=== PATIENT | male | born 1970 | race Caucasian/White ===

== ENCOUNTER 2021-10-16 18:29 | Observation (INO) ==
[2021-10-16] MEDS ORDERED: ONDANSETRON INJ 2 MG/ML 2 ML VIAL IV STA ×2 (18:37→21:23)
[2021-10-16 20:03] LABS: Hemoglobin 15.7 g/dl (14.0-18.0); Mean Corpuscular Hemoglobin 31.8 pg (25.0-34.0); Mean Corpuscular Hgb Conc 34.9 g/dL (32.0-36.0); Mean Corpuscular Volume 91.1 fL (80.0-100.0); Mean Platelet Volume 10.8 fL (9.4-12.4); Platelet Count 239 K/uL (130-400); RDW Coefficient of Variation 14.6 % (11.5-14.5); RDW Standard Deviation 48.3 fL (36.4-46.3); Red Blood Count 4.94 M/uL (4.63-6.08); White Blood Count 20.79 K/ul (4.8-10.8)
[2021-10-16 20:18] LABS: Basophils # (auto) 0.07 K/uL (0-0.2); Basophils % (auto) 0.3 %; Immature Granulocytes # (auto) 0.09 K/uL (0.00-0.02); Immature Granulocytes % (auto) 0.4 %; Lymphocytes # (auto) 1.33 K/uL (1.2-3.4); Lymphocytes % (auto) 6.4 %; Monocytes # (auto) 0.65 K/uL (0.24-0.82); Monocytes % (auto) 3.1 %; Neutrophils # (auto) 18.65 K/uL (1.4-6.5); Neutrophils % (auto) 89.8 %; Target Cells 1+
[2021-10-16 20:28] LABS: Albumin Globulin Ratio 1.6 (0.9-2); Albumin Level 4.9 gm/dl (3.4-5.0); BUN Creatinine Ratio 15.7 (10-20); Bilirubin,Total 0.7 mg/dl (0.2-1.0); Calcium 10.1 mg/dl (8.5-10.1); Creatinine Clr Calc Pharmacy 66.7 ml/min; Est GFR (African American) 98.2 ml/min; Est GFR (Non-African American) 84.7 ml/min; Globulin 3.1 gm/dl (2.5-4.0); Potassium 4.5 mmol/L (3.5-5.1)
[2021-10-16] MEDS ORDERED: ACETAMINOPHEN 1,000 MG/100 ML VIAL IV STA (21:23)
[2021-10-16] MEDS ORDERED: PANTOprazole 40 MG in SYRINGE 0 ML IV ONE (21:23)
[2021-10-16] MEDS ORDERED: SODIUM CHLORIDE 0.9% 1000ML 1,000 ML IV ONE (21:25)
--- NOTE | 2021-10-16 21:52 | Emergency Department Note ---
History of Present Illness General Chief complaint: Vomiting Stated complaint: VOMITING, NAUSEA, WEAKNESS Time Seen by Provider: 10/16/21 21:19 Source: patient and family Mode of arrival: ambulatory Limitations: no limitations History of Present Illness Provider complaint: Nausea, vomiting, abdominal pain Maximum Pain Intensity: 9 This is a 51-year-old male presents emergency department complaining of nausea, vomiting, abdominal pain. Patient states symptoms began this morning. He stat es he has had similar episodes previously approximately 5 to 6 years ago. Family at bedside states they are concerned he may have a developing stomach ulcer but he has previously refused any evaluation. He states he has never had an EGD and doesn't take stomach medication. Patient states he vomited numerous times, states it looks brown and he thought at one time he saw blood. Patient states he did have a looser stool today that appeared dark, no obvious blood, states it was not black. Patient denies any change in medications. Does admit to frequent use of NSAIDs, no use of aspirin or anticoagulation. Patient states he has accompanying upper abdominal pain that began after his nausea and vomiting. Patient denies fevers or chills. Patient states he does feel slightly weak and dizzy. No hx of IBS/IBD. Pt seen during a time of high acuity and national emergency pandemic while wea ring PPE. Home Medications Medication Instructions Recorded Confirmed Type No Known Home Medications 10/16/21 10/16/21 History Allergies Allergy/AdvReac Type Severity Reaction Status Date / Time No Known Allergies Allergy Unverified 10/16/21 20:38 Past Med/Surg History Medical History GERD (gastroesophageal reflux disease) Surgical History No significant past surgical history Social History Smoking Status: Former smoker Hx Alcohol Use: Yes Hx Substance Use: No marital status: Current Living Situation: Spouse Feels Safe at Home: Yes Review of Systems A total of 10 systems reviewed and were otherwise negative All systems reviewed & are unremarkable except as noted in HPI & below Physical Exam Vital Signs Vital Signs - 24 hr 10/16/21 18:35 10/16/21 20:29 10/16/21 22:00 Temperature 36.5 C Temperature Source Oral Pulse Rate 62 Pulse Rate [Apical] 52 L Respiratory Rate 20 13 Respiratory Effort / Characteristics Non-Labored Non-Labored Non-Labored Respiratory Depth Normal Normal Normal Respiratory Pattern Regular Blood Pressure 147/116 H Blood Pressure Mean 126 Blood Pressure Position Sitting Pulse Oximetry 100 99 Oxygen Delivery Method Room Air Room Air Sepsis Recent Fever Within 48 Hours No Sepsis New/Unexplained Change in Mental Status No Sepsis Action Taken by Nursing No Action Required 10/17/21 00:00 Temperature Temperature Source Pulse Rate Pulse Rate [Apical] 88 Respiratory Rate 18 Respiratory Effort / Characteristics Non-Labored Respiratory Depth Normal Respiratory Pattern Blood Pressure Blood Pressure Mean Blood Pressure Position Pulse Oximetry 99 Oxygen Delivery Method Sepsis Recent Fever Within 48 Hours Sepsis New/Unexplained Change in Mental Status Sepsis Action Taken by Nursing GENERAL: alert, unwell appearing, well nourished, moderate distress, non-toxic EYE EXAM: normal conjunctiva, PERRL and EOM's grossly intact OROPHARYNX: no exudate, no erythema, lips, buccal mucosa, and tongue normal and mucous membranes are moist, edentulous NECK: supple, no nuchal rigidity, no adenopathy, non-tender LUNGS: Clear to auscultation. Normal chest wall mechanics, no w/r/r HEART: no murmurs, S1 normal and S2 normal ABDOMEN: abdomen soft, epigastric tenderness with palpation, normo-active bowel sounds, no masses, no rebound or guarding. BACK: Back is symmetrical on inspection and there is no deformity, no midline tenderness, no CVA tenderness. SKIN: no rashes and no bruising UPPER EXTREMITIES: upper extremities are grossly normal. FROM, nml pulses b/l. LOWER EXTREMITIES: No pitting edema. FROM, nml pulses b/l. NEURO EXAM: Normal sensorium, cranial nerves II-XII grossly intact, normal speech, no gross weakness of arms, no gross weakness of legs. Gross sensation intact. Course Course 9529: Patient updated on results. States still very nauseated and having abdom inal pain. Administered Medications Sodium Chloride (Nss 1000ml) 1,000 mls @ 125 mls/hr IV .Q8H YULISA Stop: 11/15/21 23:14 Last Admin: 10/16/21 23:57 Dose: 125 mls/hr Documented By: MARI Discontinued Medications Diphenhydramine HCl (Diphenhydramine 50 Mg/Ml Vial) 12.5 mg IV NOW STA Stop: 10/16/21 23:38 Last Admin: 10/16/21 23:56 Dose: 12.5 mg Documented By: MARI Pantoprazole Sodium 40 mg/ (Syringe) 10 mls @ 5 mls/min IV NOW ONE Stop: 10/16/21 21:24 Last Admin: 10/16/21 21:50 Dose: 5 mls/min Documented By: MARI Acetaminophen (Ofirmev) 1,000 mg in 100 mls @ 400 mls/hr IV NOW STA Stop: 10/16/21 21:37 Last Infusion: 10/16/21 21:51 Dose: 0 mls/hr Documented By: Admin: 10/16/21 21:36 Dose: 400 mls/hr Documented By: CC Sodium Chloride (Nss 1000ml) 1,000 mls @ 999 mls/hr IV .Q1H1M ONE Stop: 10/16/21 22:25 Last Infusion: 10/16/21 22:30 Dose: 0 mls/hr Documented By: Admin: 10/16/21 21:33 Dose: 999 mls/hr Documented By: CC Piperacillin Sod/Tazobactam Sod (Zosyn) 4.5 gm in 120 mls @ 240 mls/hr IV NOW ONE Stop: 10/17/21 00:06 Last Infusion: 10/17/21 01:00 Dose: 0 mls/hr Documented By: Admin: 10/16/21 23:55 Dose: 240 mls/hr Documented By: MARI Famotidine (Pepcid 20mg Iv Push) 20 mg in 5 mls @ 2.5 mls/min IV NOW STA Stop: 10/16/21 23:38 Last Admin: 10/16/21 23:55 Dose: 2.5 mls/min Documented By: MARI Prochlorperazine (Compazine) 1 mls @ 1 mls/min IV ONE ONE Stop: 10/16/21 23:38 Last Admin: 10/16/21 23:55 Dose: 1 mls/min Documented By: MARI Ondansetron HCl (Ondansetron Inj 2 Mg/Ml 2 Ml Vial) 4 mg IV NOW STA Stop: 10/16/21 18:38 Last Admin: 10/16/21 19:51 Dose: 4 mg Documented By: ANDREW Ondansetron HCl (Ondansetron Inj 2 Mg/Ml 2 Ml Vial) 4 mg IV NOW STA Stop: 10/16/21 21:24 Last Admin: 10/16/21 21:33 Dose: 4 mg Documented By: AILYN Medical Decision Making Differential Diagnosis Differential diagnoses includes but is not limited to gastritis, peptic ulcer disease, GERD, gallbladder disease, pancreatitis, small bowel obstruction, acute coronary syndrome, pericarditis, ischemic bowel, irritable bowel disease, irritable bowel syndrome, appendicitis, diverticulitis, malignancy, hernia, urinary tract infection, torsion, [/ectopic (if female)], perforation, trauma, infectious. Medical Records Attestation: I reviewed the patient's medical records. Home Medications Current Medication List: was personally reviewed by me Laboratory Data Attestation: I reviewed the patient's lab results. Result diagrams: 10/16/21 19:56 10/16/21 19:56 Lab Results 10/16/21 10/16/21 10/16/21 Range/Units 19:56 19:56 22:50 WBC 20.79 H (4.8-10.8) K/ul RBC 4.94 (4.63-6.08) M/uL Hgb 15.7 (14.0-18.0) g/dl Hct 45.0 (40.1-51.0) % MCV 91.1 (80.0-100.0) fL MCH 31.8 (25.0-34.0) pg MCHC 34.9 (32.0-36.0) g/dL RDW Std Deviation 48.3 H (36.4-46.3) fL RDW Coeff of Rosaura 14.6 H (11.5-14.5) % Plt Count 239 (130-400) K/uL MPV 10.8 (9.4-12.4) fL Immature Gran % (Auto) 0.4 % Neut % (Auto) 89.8 % Lymph % (Auto) 6.4 % [place] % (Auto) 3.1 % Eos % (Auto) 0.0 % Baso % (Auto) 0.3 % Neut # (Auto) 18.65 H (1.4-6.5) K/uL Lymph # (Auto) 1.33 (1.2-3.4) K/uL [place] # (Auto) 0.65 (0.24-0.82) K/uL Eos # (Auto) 0.00 (0-0.50) K/uL Baso # (Auto) 0.07 (0-0.2) K/uL Immature Gran # (Auto) 0.09 H (0.00-0.02) K/uL Target Cells 1+ Sodium 139 (136-145) mmol/L Potassium 4.5 (3.5-5.1) mmol/L Chloride 103 (98-107) mmol/L Carbon Dioxide 26 (21-32) mmol/L Anion Gap 10 (3-11) BUN 16 (6-23) mg/dl Creatinine 1.02 (0.6-1.4) mg/dl Est Cr Clr Drug Dosing 66.7 ml/min Est GFR ( Amer) 98.2 ml/min Est GFR (Non-Af Amer) 84.7 ml/min BUN/Creatinine Ratio 15.7 (10-20) Glucose 160 H (70-99(Fasting)) mg/dl Calcium 10.1 (8.5-10.1) mg/dl Total Bilirubin 0.7 (0.2-1.0) mg/dl AST 15 (13-39) U/L ALT 11 (7-52) U/L Alkaline Phosphatase 99 (34-104) U/L Total Protein 8.0 (6.0-8.3) gm/dl Albumin 4.9 (3.4-5.0) gm/dl Globulin 3.1 (2.5-4.0) gm/dl Albumin/Globulin Ratio 1.6 (0.9-2) Lipase 8 L (11-82) U/L Gastric Fluid pH 2 Gastric Occult Blood Positive A (Negative) SARS-CoV-2 (PCR) (Negative) Influenza Type A (PCR) (Neg) Influenza Type B (PCR) (Neg) RSV (RT-PCR) (Neg) 10/17/21 Range/Units 00:05 WBC (4.8-10.8) K/ul RBC (4.63-6.08) M/uL Hgb (14.0-18.0) g/dl Hct (40.1-51.0) % MCV (80.0-100.0) fL MCH (25.0-34.0) pg MCHC (32.0-36.0) g/dL RDW Std Deviation (36.4-46.3) fL RDW Coeff of Rosaura (11.5-14.5) % Plt Count (130-400) K/uL MPV (9.4-12.4) fL Immature Gran % (Auto) % Neut % (Auto) % Lymph % (Auto) % [place] % (Auto) % Eos % (Auto) % Baso % (Auto) % Neut # (Auto) (1.4-6.5) K/uL Lymph # (Auto) (1.2-3.4) K/uL [place] # (Auto) (0.24-0.82) K/uL Eos # (Auto) (0-0.50) K/uL Baso # (Auto) (0-0.2) K/uL Immature Gran # (Auto) (0.00-0.02) K/uL Target Cells Sodium (136-145) mmol/L Potassium (3.5-5.1) mmol/L Chloride (98-107) mmol/L Carbon Dioxide (21-32) mmol/L Anion Gap (3-11) BUN (6-23) mg/dl Creatinine (0.6-1.4) mg/dl Est Cr Clr Drug Dosing ml/min Est GFR ( Amer) ml/min Est GFR (Non-Af Amer) ml/min BUN/Creatinine Ratio (10-20) Glucose (70-99(Fasting)) mg/dl Calcium (8.5-10.1) mg/dl Total Bilirubin (0.2-1.0) mg/dl AST (13-39) U/L ALT (7-52) U/L Alkaline Phosphatase (34-104) U/L Total Protein (6.0-8.3) gm/dl Albumin (3.4-5.0) gm/dl Globulin (2.5-4.0) gm/dl Albumin/Globulin Ratio (0.9-2) Lipase (11-82) U/L Gastric Fluid pH Gastric Occult Blood (Negative) SARS-CoV-2 (PCR) NEGATIVE (Negative) Influenza Type A (PCR) Negative (Neg) Influenza Type B (PCR) Negative (Neg) RSV (RT-PCR) Negative (Neg) Imaging Data Radiologist's Impression: CT abdomen pelvis with contrast: Diffuse colonic wall thickening consistent with a nonspecific colitis. Interval increase in size of noncalcified focal submillimeter thickening of the wall of the gallbladder fundus (axial series 2 image 36). This may represent a slow- growing polyp, recommend correlation with ultrasound when clinically appropriate. Other findings: Compared to 10/14/2013. No bowel obstruction or ileus. No evidence for appendicitis. No evidence for diverticulitis. No free fluid. Multiple hypodense subcentimeter liver lesions, too small to characterize and likely small cyst. No calcified gallstones. No biliary ductal dilatation. Pancreas is unremarkable. Spleen is unremarkable. No obstructive uropathy. Kidneys are unremarkable. Urinary bladder is unremarkable. Atherosclerotic vascular calcifications. Radiologist: Ismael Salmon MD ECG Data Attestation: I personally reviewed and interpreted this ECG as follows: Indication: + vomiting Rate (beats per minute): 60 Rhythm: + normal sinus ECG Intervals/blocks: + Normal QRS and + Normal QT ECG [place]: + Normal ECG ST segments: + Normal ST segments MDM Narrative An order was placed for continuous cardiac monitoring. The monitor shows a rate of _90_ with _normal sinus_ rhythm. This is a 51-year-old male presents emergency department due to concern for upper abdominal pain, nausea and vomiting. Patient actively retching upon my initial exam. He was afebrile and hemodynamically stable. Labs of been started by nursing staff per protocol as patient seen on the day of high volume and acuity. Upon my evaluation I added additional medication for nausea, pain, acid reduction, and IV fluids. CT of the abdomen pelvis was also ordered. H&H sta ble, however leukocytosis of 20 was noted. Patient was only minimally improved after initial medications. Additional meds were added. CT revealed colitis. Patient was noted to have hematemesis, suspect from recurrent episodes of vomiting throughout the day given prior history of gastritis and noncompliance with medication. No evidence of perforation. Chest x-ray otherwise unremarkable. Case discussed with hospitalist for additional evaluation and management. Impression & Plan Abdominal pain, Colitis, Nausea & vomiting, Hematemesis Discharge Plan Visit Data Chief Complaint: Vomiting Stated Complaint: VOMITING, NAUSEA, WEAKNESS ED Provider: Dyana Vaughn Discharge Problem: Abdominal pain, Colitis, Nausea & vomiting, Hematemesis Patient Disposition: Still a Patient Forms Stand Alone Forms: My [facility] Prescriptions Prescriptions: No Action No Known Home Medications Referrals Referrals: PCP,NO [Primary Care Provider] -
[2021-10-16] MEDS ORDERED: SODIUM CHLORIDE 0.9% 1000ML 1,000 ML IV SCH (23:15)
[2021-10-16] MEDS ORDERED: PROCHLORPERAZINE 1 ML IV ONE (23:37)
[2021-10-16] MEDS ORDERED: diphenhydrAMINE 50 MG/ML VIAL IV STA (23:37)
[2021-10-16] MEDS ORDERED: PIPERACILLIN/TAZOBACTAM 4.5 GM/120 ML BAG IV ONE (23:37)
[2021-10-16] MEDS ORDERED: FAMOTIDINE 20MG IV PUSH 20 MG/5 ML SYR IV STA (23:37)
[2021-10-16 23:49] LABS: Gastric Occult Blood Positive (Negative); pH Gastric Fluid 2
[2021-10-17 01:06] LABS: Influenza A virus by PCR Negative (Neg); Influenza B virus by PCR Negative (Neg); RSV by PCR Negative (Neg); SARS CoV2 RNA(COVID-19) InHosp NEGATIVE (Negative)
[2021-10-17] MEDS ORDERED: NITROGLYCERIN SL 0.4 MG/TAB TAB SL PRN (03:35)
[2021-10-17] MEDS ORDERED: ACETAMINOPHEN 325 MG TAB PO PRN (03:35)
[2021-10-17] MEDS ORDERED: PANTOprazole 80 MG in DEXTROSE 5% 100 ML IV ONE (03:35)
[2021-10-17] MEDS ORDERED: PANTOPRAZOLE BOLUS/DRIP 1 EACH IV STA (03:35)
[2021-10-17] MEDS ORDERED: PANTOprazole 40 MG in SYRINGE 0 ML IV ONE (04:00)
[2021-10-17] MEDS: PANTOprazole 40 MG in DEXTROSE 5% 100 ML IV SCH ×4 (04:08→21:59)
[2021-10-17 05:21] LABS: Hematocrit (blood only) 38.6 % (40.1-51.0); Hemoglobin 13.4 g/dl (14.0-18.0)
[2021-10-17 05:22] LABS: Basophils # (auto) 0.04 K/uL (0-0.2); Basophils % (auto) 0.2 %; Hematocrit (blood only) 38.1 % (40.1-51.0); Hemoglobin 13.3 g/dl (14.0-18.0); Immature Granulocytes # (auto) 0.07 K/uL (0.00-0.02); Immature Granulocytes % (auto) 0.4 %; Lymphocytes # (auto) 1.99 K/uL (1.2-3.4); Lymphocytes % (auto) 11.7 %; Mean Corpuscular Hemoglobin 31.4 pg (25.0-34.0); Mean Corpuscular Hgb Conc 34.9 g/dL (32.0-36.0); Mean Corpuscular Volume 89.9 fL (80.0-100.0); Monocytes % (auto) 6.4 %; Neutrophils # (auto) 13.87 K/uL (1.4-6.5); Neutrophils % (auto) 81.3 %; Platelet Count 212 K/uL (130-400); RDW Coefficient of Variation 14.6 % (11.5-14.5); RDW Standard Deviation 48.2 fL (36.4-46.3); Red Blood Count 4.24 M/uL (4.63-6.08); White Blood Count 17.07 K/ul (4.8-10.8)
[2021-10-17] MEDS: SODIUM CHLORIDE 0.9% 1000ML 1,000 ML IV SCH ×3 (05:50→21:54)
[2021-10-17 05:54] LABS: Calcium 8.7 mg/dl (8.5-10.1); Est GFR (African American) 100.6 ml/min; Est GFR (Non-African American) 86.8 ml/min; Magnesium 1.7 mg/dl (1.7-2.4); Potassium 4.1 mmol/L (3.5-5.1)
--- NOTE | 2021-10-17 06:10 | History and Physical Report ---
DATE OF ADMISSION: 10/17/2021. CHIEF COMPLAINT: Nausea, vomiting, abdominal pain. HISTORY OF PRESENT ILLNESS: A 51-year-old male with a past medical history significant for history of diarrhea, nausea, vomiting, severe epigastric abdominal pain, leukocytosis, tobacco use disorder, presents with nausea, vomiting, abdominal pain going on for 1 day, had several episodes of vomiting. He had a similar episode about 5-6 years ago. He stated that he had one episode of some blood in the vomitus. Denies any diarrhea. He says he will occasionally take NSAIDs, but not on a regular basis. Denies any headache. No neck pain, no back pain. No chest pain, no shortness of breath. Has chronic cough. He has a smoking history. Normal bladder movements. Normal bowel movements, hemodynamically stable. ALLERGIES: No known drug allergies. PAST MEDICAL HISTORY: As mentioned above. PAST SURGICAL HISTORY: None. MEDICATIONS: None. FAMILY HISTORY: Mother had diabetes, heart attacks. SOCIAL HISTORY: . Smokes 1 pack a day for last 15 years. No alcohol use. No drug use. REVIEW OF SYSTEMS: As per HPI. Rest of the review of systems is negative. PHYSICAL EXAMINATION: GENERAL: The patient is of moderate build, not in acute distress. VITAL SIGNS: Temperature 36.5, pulse 91, respiratory rate 24, blood pressure 147/116, oxygen 99% on room air. HEENT: Pupils equal, round and reactive to light. Oral mucosa moist. NECK: No JVD or neck masses. CARDIOVASCULAR: S1 and S2 heard. Regular rate and rhythm. No murmur, no gallop. RESPIRATORY SYSTEM: Normal AP diameter. No accessory muscle use. No wheezing, no crackles. ABDOMEN: Soft, bowel sounds present, nontender, no distention. CENTRAL NERVOUS SYSTEM: Cranial nerves II-XII grossly nonfocal. EXTREMITIES: No edema, no erythema. LABORATORY DATA: WBC 20, hemoglobin 15.7, hematocrit 45, platelets 239. Sodium 139, potassium 4.5, chloride 103, bicarb 26, BUN 16, creatinine 1.02, serum glucose 160, calcium 10.1, total bilirubin 0.7, AST 15, ALT 11, alkaline phosphatase 99, lipase 8. Gastric occult blood positive. SARS-CoV-2 PCR negative. Influenza A and B PCR negative. RSV PCR negative. IMAGING DATA: Chest x-ray, no acute findings. CT of abdomen and pelvis, on the preliminary report, diffuse colon wall thickening consistent with nonspecific colitis, possible small growing gallbladder polyp. ASSESSMENT AND PLAN: This is a 51-year-old male who presents with nausea, vomiting, abdominal pain. 1. Nausea, vomiting, abdominal pain, possible gastrointestinal bleed: Hemoglobin stable at 15.7. The patient sleeping and refused to sign blood consent at this time. Starting on Protonix drip.Also colitis on the CAT scan and also leukocytosis,starting on empiric IV Zosyn, n.p.o., IV fluids, IV antiemetics. Consult gastroenterology in the a.m. for further recommendations. 2. Tobacco abuse: Needs counseling. 3. Gallbladder polyp:On Ct scan preliminary report. Recommendations as per gastroenterology. 4. Deep vein thrombosis prophylaxis: Sequential compression devices. DISPOSITION: Monitor in the [employer]. PT/OT prior to discharge. Social service to help with discharge planning. Job ID: [id number] MTDD
[2021-10-17] MEDS: PIPERACILLIN/TAZOBACTAM 3.375 GM in DEXTROSE 5% 100 ML IV SCH ×3 (06:32→22:02)
--- NOTE | 2021-10-17 07:38 | CT Scan Report ---
CT SCAN OF THE ABDOMEN AND PELVIS WITH IV CONTRAST CLINICAL HISTORY: Upper abdominal pain. Nausea and vomiting. COMPARISON STUDY: Abdominal CT dated 10/14/2013. TECHNIQUE: Following the IV administration of 91 cc of Optiray 300, CT scan of the abdomen and pelvi s is performed from the lung bases to the proximal femora. Images are reviewed in the axial, sagittal , and coronal planes. IV contrast was administered without complication. A dose lowering technique wa s utilized adhering to the principles of ALARA. CT DOSE: 266.54 mGy.cm FINDINGS: Lung bases: The heart is normal in size and without pericardial effusion. The lung bases are clear. Liver: The contrast-enhanced liver is normal in size, contour, and attenuation. Focal fatty infiltrat ion is seen adjacent to the falciform ligament. There is no intrahepatic biliary ductal dilatation. T he hepatic veins and portal veins are patent. Scattered subcentimeter hepatic hypodensities likely re present cysts but are too small for definitive characterization. Gallbladder: Adenomyomatosis is suggested in the gallbladder fundus. The gallbladder is otherwise nor mal as imaged. Spleen: Normal in size and attenuation. Pancreas: Unremarkable. Adrenal glands: Unremarkable. Kidneys: The contrast enhanced kidneys are normal in size and without hydronephrosis. The kidneys enh ance symmetrically. Abdominal vasculature: The abdominal aorta is normal in course and caliber noting mild to moderate at herosclerotic calcification. Bowel: There is mild sigmoid diverticulosis without CT evidence of acute diverticulitis. No bowel obs truction is seen. There is underdistention of the colon. No surrounding inflammation is seen to sugge st colitis. The appendix is well-visualized and normal. Peritoneum: There is no intraperitoneal free air or abdominal ascites. Lymphadenopathy: None. Pelvic viscera: The prostate gland is enlarged and heterogeneous noting median lobe hypertrophy. The bladder is normal as visualized. Skeletal structures: No lytic or blastic lesions are seen. IMPRESSION: 1. No acute infectious or inflammatory findings are identified in the abdomen or pelvis. 2. Adenomyomatosis is suggested in the gallbladder fundus. Nonemergent ultrasound is recommended for further assessment. ACT 112: Negative or not required by law. Electronically signed by: Martinez Ortiz M.D. 10/17/2021 7:37 AM
--- NOTE | 2021-10-17 08:29 | XRay Report ---
XR chest 1V portable HISTORY: vomiting COMPARISON: Chest and abdominal series 10/14/2013. FINDINGS: The lungs are clear. Cardiac silhouette is normal in size. No pleural effusions. No pneumot horax. IMPRESSION: No acute process. ACT 112: Negative or not required by law. Electronically signed by: Gonzalez Anglin M.D. 10/17/2021 8:28 AM
--- NOTE | 2021-10-17 09:52 | Gastrointestinal Consultation ---
Date of Consultation October 17, 2021 Assessment & Plan (1) Hematemesis: EGD today. Patient was explained in detail regarding risks, benefits, limitations and alternatives of the above endoscopic procedure. Risks of intravenous sedation used for procedure were also explained. Risks include, but not limited to perforation, bleeding, infection, respiratory distress, cardiac arrest and . Patient is also aware about the possibility of missed lesion. Patient's questions were answered. The patient verbalized understanding the information and agreed to undergo the procedure. IV PPI. Screening colonoscopy as OP. For GB adenomyomatosis, obtain US abdomen, if no gallstones then no intervention needed. (2) Nausea & vomiting: (3) Abdominal pain: (4) GERD (gastroesophageal reflux disease): History of Present Illness Attending Physician: Frantz Maravilal MD History of Present Illness 51 years old male patient with no medical comorbids, presented to the hospital with abdominal pain, nausea and vomiting with an episode of hematemesis. Had similar episodes in the past. Denies any fever or chills, no diarrhea or constipation, no weight loss. No prior EGD. Labs with leukocytosis and drop in H/H. Reports GERD symptoms for many years but does not take any meds. Allergies Allergy/AdvReac Type Severity Reaction Status Date / Time No Known Allergies Allergy Unverified 10/16/21 20:38 Home Medications Medication Instructions Recorded Confirmed Type No Known Home Medications 10/16/21 10/16/21 History Patient History Medical History GERD (gastroesophageal reflux disease) Surgical History No significant past surgical history Social History Smoking Status: Former smoker Hx Alcohol Use: Yes Hx Substance Use: No marital status: Current Living Situation: Spouse Feels Safe at Home: Yes Review of Systems Constitutional: no fever, no chills, no fatigue and no weight loss Eyes: no eye pain and no worsening vision Ear, Nose, Mouth, Throat: no tinnitus, no dizziness, no nasal discharge and no epistaxis Respiratory: no cough, no dyspnea, no dyspnea on exertion and no wheezing Cardiovascular: no chest pain, no orthopnea, no palpitations and no edema Gastrointestinal: as per Subjective / HPI Musculoskeletal: no stiffness and no myalgia Neurologic: no localized weakness, no paralysis, no tremor(s) and no headache(s) Endocrine: no polydipsia and no polyuria Hematologic / Lymphatic: no easy bleeding and no night sweats Physical Exam Constitutional: + well hydrated, cooperative and comfortable Eyes: PERRL, conjunctivae normal, anicteric sclerae ENMT: external ear and nose normal, oropharynx normal Neck: normal visual inspection and trachea midline Respiratory: normal respiratory effort, lungs clear to auscultation Auscultation: no wheezes Cardiovascular: RRR, no murmur, no edema Gastrointestinal (Abdomen): normal bowel sounds, soft, nontender, no hepatosplenomegaly Musculoskeletal: no cyanosis or clubbing, extremities motor strength 5/5 Skin: no rashes, warm and dry Neurologic: awake; no focal motor deficits Motor/Sensory: no tremor Results & Data ([facility]) Vital Signs (Past 12 Hours) Vital Signs Pulse Pulse Resp BP Pulse Ox O2 Del Method 10/17/21 03:59 82 18 10/17/21 04:00 77 Room Air 10/17/21 04:49 84 16 122/84 98 Room Air 10/17/21 02:00 90 16 98 10/17/21 01:50 91 H 24 10/17/21 01:40 95 H 25 H 10/17/21 01:30 70 28 H 10/17/21 01:20 78 24 10/17/21 01:10 97 H 24 10/17/21 01:00 80 21 10/17/21 00:50 92 H 2 L 10/17/21 00:40 87 16 10/17/21 00:30 91 H 18 10/17/21 00:20 91 H 18 10/17/21 00:10 88 16 10/17/21 00:00 63 14 10/16/21 23:50 66 29 H 10/16/21 23:40 61 23 10/16/21 23:30 62 28 H 10/16/21 23:20 59 L 12 10/16/21 23:10 64 19 10/16/21 23:00 65 12 10/16/21 22:50 65 18 10/16/21 22:45 65 16 10/16/21 21:57 98 10/17/21 00:00 88 18 99 Laboratory Results Laboratory Results - last 24 hr 10/16/21 10/16/21 10/16/21 19:56 19:56 22:50 WBC 20.79 H RBC 4.94 Hgb 15.7 Hct 45.0 MCV 91.1 MCH 31.8 MCHC 34.9 RDW Std Deviation 48.3 H RDW Coeff of Rosaura 14.6 H Plt Count 239 MPV 10.8 Immature Gran % (Auto) 0.4 Neut % (Auto) 89.8 Lymph % (Auto) 6.4 [place] % (Auto) 3.1 Eos % (Auto) 0.0 Baso % (Auto) 0.3 Neut # (Auto) 18.65 H Lymph # (Auto) 1.33 [place] # (Auto) 0.65 Eos # (Auto) 0.00 Baso # (Auto) 0.07 Immature Gran # (Auto) 0.09 H Target Cells 1+ Sodium 139 Potassium 4.5 Chloride 103 Carbon Dioxide 26 Anion Gap 10 BUN 16 Creatinine 1.02 Est Cr Clr Drug Dosing 66.7 Est GFR ( Amer) 98.2 Est GFR (Non-Af Amer) 84.7 BUN/Creatinine Ratio 15.7 Glucose 160 H Calcium 10.1 Magnesium Total Bilirubin 0.7 AST 15 ALT 11 Alkaline Phosphatase 99 Total Protein 8.0 Albumin 4.9 Globulin 3.1 Albumin/Globulin Ratio 1.6 Lipase 8 L Gastric Fluid pH 2 Gastric Occult Blood Positive A SARS-CoV-2 (PCR) Influenza Type A (PCR) Influenza Type B (PCR) RSV (RT-PCR) 10/17/21 10/17/21 10/17/21 00:05 04:47 04:47 WBC 17.07 H RBC 4.24 L Hgb 13.4 L 13.3 L Hct 38.6 L 38.1 L MCV 89.9 MCH 31.4 MCHC 34.9 RDW Std Deviation 48.2 H RDW Coeff of Rosaura 14.6 H Plt Count 212 MPV 11.0 Immature Gran % (Auto) 0.4 Neut % (Auto) 81.3 Lymph % (Auto) 11.7 [place] % (Auto) 6.4 Eos % (Auto) 0.0 Baso % (Auto) 0.2 Neut # (Auto) 13.87 H Lymph # (Auto) 1.99 [place] # (Auto) 1.10 H Eos # (Auto) 0.00 Baso # (Auto) 0.04 Immature Gran # (Auto) 0.07 H Target Cells Sodium Potassium Chloride Carbon Dioxide Anion Gap BUN Creatinine Est Cr Clr Drug Dosing Est GFR ( Amer) Est GFR (Non-Af Amer) BUN/Creatinine Ratio Glucose Calcium Magnesium Total Bilirubin AST ALT Alkaline Phosphatase Total Protein Albumin Globulin Albumin/Globulin Ratio Lipase Gastric Fluid pH Gastric Occult Blood SARS-CoV-2 (PCR) NEGATIVE Influenza Type A (PCR) Negative Influenza Type B (PCR) Negative RSV (RT-PCR) Negative 10/17/21 04:47 WBC RBC Hgb Hct MCV MCH MCHC RDW Std Deviation RDW Coeff of Rosaura Plt Count MPV Immature Gran % (Auto) Neut % (Auto) Lymph % (Auto) [place] % (Auto) Eos % (Auto) Baso % (Auto) Neut # (Auto) Lymph # (Auto) [place] # (Auto) Eos # (Auto) Baso # (Auto) Immature Gran # (Auto) Target Cells Sodium 141 Potassium 4.1 Chloride 109 H Carbon Dioxide 24 Anion Gap 8 BUN 15 Creatinine 1.00 Est Cr Clr Drug Dosing 68.0 Est GFR ( Amer) 100.6 Est GFR (Non-Af Amer) 86.8 BUN/Creatinine Ratio 15.0 Glucose 118 H Calcium 8.7 Magnesium 1.7 Total Bilirubin AST ALT Alkaline Phosphatase Total Protein Albumin Globulin Albumin/Globulin Ratio Lipase Gastric Fluid pH Gastric Occult Blood SARS-CoV-2 (PCR) Influenza Type A (PCR) Influenza Type B (PCR) RSV (RT-PCR)
--- NOTE | 2021-10-17 09:57 | Anesthesiology Consultation ---
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 History Surgery Operation Date: 10/17/21 12:00 Proposed Procedures p EGD EMR Jesus - Silvano Lee MD Height/Weight Height: 5 ft 4 in Weight: 67 kg Allergies Allergy/AdvReac Type Severity Reaction Status Date / Time No Known Allergies Allergy Unverified 10/16/21 20:38 Medications Home Medications Medication Instructions Recorded Confirmed Last Taken No Known Home Medications 10/16/21 10/16/21 Unknown Active Medications Generic Name Dose Route Start Last Admin Trade Name Freq PRN Reason Stop Dose Admin Sodium Chloride 1,000 mls @ 125 mls/hr 10/17/21 03:35 10/17/21 05:50 Nss 1000ml IV 11/16/21 03:34 125 mls/hr .Q8H YULISA Administration Pantoprazole Sodium 40 mg/ 100 mls @ 20 mls/hr 10/17/21 04:15 10/17/21 09:53 Dextrose IV 11/16/21 04:14 Infused Q5H YULISA Infusion 8 MG/HR Piperacillin Sod/Tazobactam 115 mls @ 28.75 mls/hr 10/17/21 06:00 10/17/21 06:32 Sod 3.375 gm/ Dextrose IV 10/27/21 05:59 28.8 mls/hr Q8H YULISA Administration Protocol Past Medical History Medical History GERD (gastroesophageal reflux disease) Past Surgical History Surgical History No significant past surgical history Social History Smoking Status: Current every day smoker tobacco type: cigarettes Hx Alcohol Use: No Hx Substance Use: No Physical Exam Vital Signs Last Vital Signs Temp 97.7 F 10/16/21 18:35 Pulse 78 10/17/21 09:41 Resp 18 10/17/21 09:41 BP 104/69 10/17/21 09:41 Pulse Ox 98 10/17/21 09:41 O2 Del Method 10/17/21 09:41 Testing Laboratory Results 10/17/21 04:47 10/17/21 04:47 Electrocardiogram Date: 10/16/21 Normal sinus rhythm with sinus arrhythmia, rate 60 bpm Normal ECG When compared with ECG of 14-OCT-2013 15:14, No significant change was found Chest X-Ray Date: 10/16/21 Findings: + NAD
[2021-10-17 11:18] LABS: Hematocrit (blood only) 38.3 % (40.1-51.0); Hemoglobin 13.2 g/dl (14.0-18.0)
[2021-10-17] MEDS ORDERED: ONDANSETRON INJ 2 MG/ML 2 ML VIAL IV PRN (12:10)
[2021-10-17] MEDS ORDERED: fentaNYL citrate 100 MCG/2 ML VIAL IV PRN (12:10)
[2021-10-17] MEDS ORDERED: ePHEDrine sulfate 50 MG/ML AMP IV PRN (12:10)
[2021-10-17] MEDS ORDERED: ATROPINE SULFATE 0.1 MG/ML 10ML SYR IV PRN (12:10)
--- NOTE | 2021-10-17 13:42 | Operative Report ---
Post Operative Report Pre & Post Diagnosis Operation Date: 10/17/21 12:00 <No data on this case meets the specified criteria> I identified the patient and participated in the time-out.: Yes Procedure Operation Date: 10/17/21 12:00 Actual Procedures p Esophagogastroduodenoscopy - Silvano Lee MD Surgeon Silvano Lee MD Mirror Machine Feeder None Estimated Blood Loss 0 Findings See Below (Esophagitis) Specimens None Description of Procedure EGD I attest to the content of the Intraoperative Record and any orders documented therein. Any exceptions are noted below.
--- NOTE | 2021-10-17 13:55 | GI REPORT ---
Patient Name: Kvng Lopez Procedure Date: 10/17/2021 1:09 PM Date of : 1970 Admit Type: Inpatient Age: 51 Gender: Male Attending MD: Silvano Lee MD Procedure: Upper GI endoscopy Providers: Silvano Lee MD Referring MD: Frantz Maravilla Md Indications: Hematemesis Medicines: Propofol per Anesthesia Complications: No immediate complications. Estimated Blood Loss: Estimated blood loss: none. Procedure: Pre-Anesthesia Assessment: - Prior to the procedure, a History and Physical was performed, and patient medications, allergies and sensitivities were reviewed. The patient's tolerance of previous anesthesia was reviewed. - The risks and benefits of the procedure and the sedation options and risks were discussed with the patient. All questions were answered and informed consent was obtained. - Patient identification and proposed procedure were verified prior to the procedure by the physician and the nurse. The procedure was verified in the procedure room. - Pre-procedure physical examination revealed no contraindications to sedation. After obtaining informed consent, the endoscope was passed under direct vision. Throughout the procedure, the patient's blood pressure, pulse, and oxygen saturations were monitored continuously.The upper GI endoscopy was accomplished without difficulty. The patient tolerated the procedure well. The Endoscope was introduced through the mouth, and advanced to the second part of duodenum. Findings: LA Grade C (one or more mucosal breaks continuous between tops of 2 or more mucosal folds, less than 75% circumference) esophagitis with no bleeding was found in the lower third of the esophagus. The entire examined stomach was normal. The duodenal bulb and second portion of the duodenum were normal. Impression: - LA Grade C reflux esophagitis. - Normal stomach. - Normal duodenal bulb and second portion of the duodenum. - No specimens collected. Recommendation: - Return patient to [facility] for ongoing care. - Advance diet as tolerated. - Use a proton pump inhibitor PO BID for 3 months. - Repeat upper endoscopy in 2 months to check healing. Silvano Lee MD 10/17/2021 1:55:28 PM This report has been signed electronically. Note Initiated On: 10/17/2021 1:09 PM Number of Addenda: 0 I attest to the content of the Intraoperative Record and orders documented therein, exceptions below {[id number]}
--- NOTE | 2021-10-17 14:48 | Anesthesiology Progress Note ---
Date of Service October 17, 2021 Anesthesia Post Procedure Vital Signs Vital Signs: Temp Pulse Pulse Resp BP BP Pulse Ox 10/17/21 14:25 97.2 F L 68 20 114/68 96 10/17/21 14:15 62 12 104/64 100 10/17/21 14:05 69 19 100/67 99 10/17/21 13:55 82 22 90/62 L 100 10/17/21 14:35 62 21 109/64 94 10/17/21 13:48 97.7 F 73 21 97/50 L 98 10/17/21 13:00 78 18 126/75 96 10/17/21 09:41 78 18 104/69 98 10/17/21 03:59 82 18 10/17/21 04:00 77 10/17/21 04:49 84 16 122/84 98 10/17/21 02:00 90 16 98 10/17/21 01:50 91 H 24 10/17/21 01:40 95 H 25 H 10/17/21 01:30 70 28 H 10/17/21 01:20 78 24 10/17/21 01:10 97 H 24 10/17/21 01:00 80 21 10/17/21 00:50 92 H 2 L 10/17/21 00:40 87 16 10/17/21 00:30 91 H 18 10/17/21 00:20 91 H 18 10/17/21 00:10 88 16 10/17/21 00:00 63 14 10/16/21 23:50 66 29 H 10/16/21 23:40 61 23 10/16/21 23:30 62 28 H 10/16/21 23:20 59 L 12 10/16/21 23:10 64 19 10/16/21 23:00 65 12 10/16/21 22:50 65 18 10/16/21 22:45 65 16 10/16/21 21:57 98 10/16/21 21:34 100 10/16/21 21:20 90 10/16/21 21:10 99 10/16/21 21:05 70 16 99 10/17/21 00:00 88 18 99 10/16/21 20:29 52 L 13 99 10/16/21 18:35 97.7 F 62 20 147/116 H 100 O2 Del Method O2 Flow Rate 10/17/21 14:25 Room Air 08/20/22 14:15 Oxymask 2 10/17/21 14:05 Oxymask 4 10/17/21 13:55 Oxymask 6 10/17/21 14:35 Room Air 10/17/21 13:48 Oxymask 6 10/17/21 13:00 Room Air 10/17/21 09:41 Room Air 10/17/21 03:59 10/17/21 04:00 Room Air 10/17/21 04:49 Room Air 10/17/21 02:00 10/17/21 01:50 10/17/21 01:40 10/17/21 01:30 10/17/21 01:20 10/17/21 01:10 10/17/21 01:00 10/17/21 00:50 10/17/21 00:40 10/17/21 00:30 10/17/21 00:20 10/17/21 00:10 10/17/21 00:00 10/16/21 23:50 10/16/21 23:40 10/16/21 23:30 10/16/21 23:20 10/16/21 23:10 10/16/21 23:00 10/16/21 22:50 10/16/21 22:45 10/16/21 21:57 10/16/21 21:34 10/16/21 21:20 10/16/21 21:10 10/16/21 21:05 10/17/21 00:00 10/16/21 20:29 Room Air 10/16/21 18:35 Room Air Pain Intensity Upper Abdomen: Pain Intensity: 2 Transfer of Care Handoff Completed per policy Notes Mental Status: alert / awake / arousable and participated in evaluation Patient Amnestic to Procedure: Yes Nausea / Vomiting: adequately controlled Pain: adequately controlled Airway Patency, RR, SpO2: stable & adequate BP & HR: stable & adequate Hydration State: stable & adequate Anesthetic Complications: no major complications apparent and Pt Satisfied with anesthetic care
[2021-10-17 16:13] LABS: Appearance Urine Clear (Clear); Bilirubin Urine Negative (Negative); Blood Urine Negative (Negative); Color Urine Dark Yellow; Glucose Urine UA Negative (Negative); Ketones Urine 1+ (Negative); Leukocyte Esterase Urine Negative (Negative); Nitrite Urine Negative (Negative); Protein Urine Negative (Negative); Specific Gravity Urine > 1.045 (1.000-1.030); Urobilinogen Urine Negative (Negative)
--- NOTE | 2021-10-17 16:52 | Communication Note ---
Date of Service: October 17, 2021 Patient feeling much improved today. Had received an EGD. Noted to have esophagitis. Continue with antibiotics. Advance liquid diet.
[2021-10-17 18:29] LABS: Hematocrit (blood only) 38.9 % (40.1-51.0); Hemoglobin 13.4 g/dl (14.0-18.0)
[2021-10-18] MEDS: PANTOprazole 40 MG in DEXTROSE 5% 100 ML IV SCH ×4 (02:45→20:22)
[2021-10-18] MEDS: NICOTINE 21 MG/24 HR TDSY TD SCH ×2 (02:54→14:25)
[2021-10-18 05:34] LABS: Basophils % (auto) 0.8 %; Eosinophils # (auto) 0.04 K/uL (0-0.50); Eosinophils % (auto) 0.3 %; Hematocrit (blood only) 34.2 % (40.1-51.0); Hemoglobin 11.8 g/dl (14.0-18.0); Immature Granulocytes # (auto) 0.03 K/uL (0.00-0.02); Immature Granulocytes % (auto) 0.3 %; Lymphocytes # (auto) 3.98 K/uL (1.2-3.4); Lymphocytes % (auto) 33.2 %; Mean Corpuscular Hemoglobin 31.3 pg (25.0-34.0); Mean Corpuscular Hgb Conc 34.5 g/dL (32.0-36.0); Mean Corpuscular Volume 90.7 fL (80.0-100.0); Mean Platelet Volume 10.7 fL (9.4-12.4); Monocytes # (auto) 0.84 K/uL (0.24-0.82); Neutrophils # (auto) 7.01 K/uL (1.4-6.5); Neutrophils % (auto) 58.4 %; Platelet Count 169 K/uL (130-400); RDW Coefficient of Variation 14.6 % (11.5-14.5); RDW Standard Deviation 48.9 fL (36.4-46.3); Red Blood Count 3.77 M/uL (4.63-6.08)
[2021-10-18] MEDS: ONDANSETRON INJ 2 MG/ML 2 ML VIAL IV PRN ×2 (05:44→15:26)
[2021-10-18 06:06] LABS: BUN Creatinine Ratio 10.4 (10-20); Calcium 8.1 mg/dl (8.5-10.1); Creatinine Clr Calc Pharmacy 76.2 ml/min; Est GFR (African American) 105.6 ml/min; Est GFR (Non-African American) 91.2 ml/min; Potassium 3.5 mmol/L (3.5-5.1)
[2021-10-18] MEDS ORDERED: MoRPHine SULFATE 4 MG/ML 1 ML CARP\\VIAL IV STA (06:17)
[2021-10-18] MEDS ORDERED: PROMETHAZINE HCL 12.5 MG in SODIUM CHLORIDE 0.9% 50 ML IV STA (06:17)
[2021-10-18] MEDS: SODIUM CHLORIDE 0.9% 1000ML 1,000 ML IV SCH ×3 (06:21→20:00)
--- NOTE | 2021-10-18 07:13 | Electrocardiogram Report ---
Test Reason : Blood Pressure : / mmHG Vent. Rate : 060 BPM Atrial Rate : 060 BPM P-R Int : 142 ms QRS Dur : 102 ms QT Int : 446 ms P-R-T Axes : 070 065 059 degrees QTc Int : 446 ms Normal sinus rhythm with sinus arrhythmia Normal ECG When compared with ECG of 14-OCT-2013 15:14, No significant change was found Confirmed by Vu Morgan ([id number]) on 10/18/2021 7:13:26 AM Referred By: REFERRED SELF Confirmed By:Vu Morgan
--- NOTE | 2021-10-18 13:55 | Ultrasound Report ---
ABDOMINAL ULTRASOUND, RIGHT UPPER QUADRANT HISTORY: Abnormal gallbladder CT. Follow-up. eval for GB polyp stone. abn CT. COMPARISON: Abdomen and pelvis CT 10/16/2021. FINDINGS: Pancreas: The pancreas demonstrates a normal echotexture. Liver: Unremarkable. Gallbladder: The gallbladder fundus is not well visualized due to overlying bowel gas. There may be f ocal thickening at the gallbladder fundus on image 28. This likely corresponds to the CT abnormality and favors adenomyomatosis. There is mild edema and thickening at the gallbladder wall along the hepa tic surface measuring up to 7 mm in thickness. No gallstones. CBD: 5 mm. Right kidney: No hydronephrosis. Trace perinephric fluid is noted. IMPRESSION: 1. The gallbladder fundus is not well visualized due to overlying bowel gas. There may be focal thick ening of the gallbladder fundus which likely corresponds to the CT abnormality and favors adenomyomat osis. 2. No gallstones. 3. Mild gallbladder wall thickening/edema along the hepatic surface measuring up to 7 mm. This nonspe cific but could be due to overhydration or underlying hepatic pathology. Recommend correlate with the LFTs. An acute cholecystitis is considered less likely. 4. Normal caliber common bile. ACT 112: Negative or not required by law. Electronically signed by: Gonzalez Anglin M.D. 10/18/2021 1:52 PM
[2021-10-18] MEDS: PIPERACILLIN/TAZOBACTAM 3.375 GM in DEXTROSE 5% 100 ML IV SCH ×3 (14:14→22:58)
[2021-10-18] MEDS ORDERED: Nursing to Pharmacy Communication SCH (17:15)
--- NOTE | 2021-10-18 18:52 | Hospitalist Progress Note ---
Date of Service October 18, 2021 Assessment & Plan (1) Esophagitis determined by endoscopy: (2) Leucocytosis: Plan 51-year-old male who presented to ED with nausea, vomiting, abdominal pain going on for 1 day, had several episodes of vomiting. Symptoms improved. CT A/P with no acute abnormality, EGD with esophagitis. Esophagitis- S/p EGD yesterday which showed grade C esophagitis, otherwise normal. Recommendations noted - PPI bid for 3 months - Repeat EGD in 2 month to assess healing - Reviewed things to look after- stop smoking, avoid NSAIDs, not to lie down until after 3-4 hrs of meal etc. He states he will quit smoking N/V- vomiting resolved, still nauseous, antiemetic prn. Currently on clear diet- will advance to full liquid diet and see how he tolerates. Advance further in am as tolerated Tobacco abuse- smokes at least 1 ppd. Recommended quitting. he is determined Leucocytosis- unclear etiology but improving with empiric antibiotics. ?reactive vs others. Will check procal and CBC in am. No blood clx were sent but no fever noted. GB adenomyomatosis- seen in CT. GI recommended GB US but not well visualized in US due to overlying bowel gas, no gallstones. Recommend OP follow up DVT ppx- SCDs. Recent hematemesis Dispo- Anticipate discharge tomorrow if symptoms controlled and tolerating po well Admission and Anticipated Discharge Date Admission Date: October 17, 2021 Subjective States he felt good yesterday but nauseous today and doesn't want to advance diet. On clear liquid diet- doing okay so far. Has epigastric burning. Physical Exam Physical Exam: General: Lying comfortably in bed, not in distress, on room air HEENT: EOMI, PERRL, MMM Chest: Clear breath sounds bilaterally, no wheezes or crackles CVS: Regular rate and rhythm, normal heart sounds, no murmur Abdomen: Soft, mild epigastric tenderness, not distended, normal bowel sounds Neuro: Awake, alert, oriented, conversing well, non focal Extremities: No edema Results & Data Results & Data ([facility]) Vital Signs (Past 12 Hours) Vital Signs Temp Pulse Pulse Resp BP BP Pulse Ox 10/18/21 17:10 57 L 10/18/21 17:00 37.1 C 58 L 18 108/69 95 10/18/21 08:00 50 L 22 93 10/18/21 08:00 131/86 10/18/21 07:30 73 96 10/18/21 07:00 24 94 10/18/21 07:00 145/78 H O2 Del Method 10/18/21 17:10 10/18/21 17:00 Room Air 10/18/21 08:00 10/18/21 08:00 10/18/21 07:30 10/18/21 07:00 10/18/21 07:00 Laboratory Results Short CBC 10/18/21 Range/Units 05:13 WBC 12.00 H (4.8-10.8) K/ul Hgb 11.8 L (14.0-18.0) g/dl Hct 34.2 L (40.1-51.0) % Plt Count 169 (130-400) K/uL BMP 10/18/21 05:13 Sodium 138 Potassium 3.5 Chloride 109 H Carbon Dioxide 23 BUN 10 Creatinine 0.96 Glucose 96 Calcium 8.1 L Medications Administered Current Inpatient Medications Acetaminophen (Acetaminophen 325 Mg Tab) 650 mg PO Q4H PRN PRN Reason: Pain or Fever Stop: 11/16/21 03:34 Sodium Chloride (Nss 1000ml) 1,000 mls @ 80 mls/hr IV .[id number] [facility] Stop: 11/16/21 03:34 Last Admin: 10/18/21 14:25 Dose: 125 mls/hr Pantoprazole Sodium 40 mg/ (Dextrose) 100 mls @ 20 mls/hr IV Q5H [facility] Stop: 11/16/21 04:14 Last Admin: 10/18/21 14:25 Dose: 8 mg/hr, 20 mls/hr Piperacillin Sod/Tazobactam (Sod 3.375 gm/ Dextrose) 115 mls @ 28.75 mls/hr IV Q8H [facility]; Protocol Stop: 10/27/21 05:59 Last Admin: 10/18/21 14:25 Dose: 28 mls/hr Miscellaneous (Remove Nicoderm Patch) 1 each N/A DAILY@0859 [facility] Stop: 11/17/21 08:58 Last Admin: 10/18/21 14:14 Dose: Not Given Nicotine (Nicotine 21 Mg/24 Hr Tdsy) 21 mg TD DAILY [facility] Stop: 11/17/21 02:39 Last Admin: 10/18/21 14:25 Dose: Not Given Nitroglycerin (Nitroglycerin Sl 0.4 Mg/Tab Tab) 0.4 mg SL UD PRN PRN Reason: Chest Pain Stop: 11/16/21 03:34 Ondansetron HCl (Ondansetron Inj 2 Mg/Ml 2 Ml Vial) 4 mg IV Q6H PRN PRN Reason: Nausea Stop: 11/16/21 03:34 Last Admin: 10/18/21 15:26 Dose: 4 mg
[2021-10-19] MEDS: ONDANSETRON INJ 2 MG/ML 2 ML VIAL IV PRN (00:21)
[2021-10-19] MEDS: PANTOprazole 40 MG in DEXTROSE 5% 100 ML IV SCH ×2 (00:56→06:32)
[2021-10-19] MEDS: PIPERACILLIN/TAZOBACTAM 3.375 GM in DEXTROSE 5% 100 ML IV SCH (06:46)
[2021-10-19 07:03] LABS: Hematocrit (blood only) 34.2 % (40.1-51.0); Hemoglobin 12.1 g/dl (14.0-18.0); Mean Corpuscular Hemoglobin 32.1 pg (25.0-34.0); Mean Corpuscular Hgb Conc 35.4 g/dL (32.0-36.0); Mean Corpuscular Volume 90.7 fL (80.0-100.0); Mean Platelet Volume 11.2 fL (9.4-12.4); Platelet Count 162 K/uL (130-400); RDW Coefficient of Variation 14.2 % (11.5-14.5); RDW Standard Deviation 47.3 fL (36.4-46.3); Red Blood Count 3.77 M/uL (4.63-6.08); White Blood Count 10.61 K/ul (4.8-10.8)
[2021-10-19 07:29] LABS: Albumin Level 3.5 gm/dl (3.4-5.0); BUN Creatinine Ratio 5.9 (10-20); Bilirubin Direct 0.1 mg/dl (0-0.2); Bilirubin,Total 0.7 mg/dl (0.2-1.0); Calcium 8.3 mg/dl (8.5-10.1); Creatinine Clr Calc Pharmacy 72.5 ml/min; Est GFR (African American) 99.4 ml/min; Est GFR (Non-African American) 85.7 ml/min; Magnesium 1.8 mg/dl (1.7-2.4); Phosphorus 3.3 mg/dl (2.5-4.9); Potassium 3.4 mmol/L (3.5-5.1); Total Protein 5.5 gm/dl (6.0-8.3)
[2021-10-19] MEDS ORDERED: POTASSIUM CHLORIDE CRTAB 20 MEQ TABCR PO ONE (07:34)
[2021-10-19] MEDS: SODIUM CHLORIDE 0.9% 1000ML 1,000 ML IV SCH (10:39)
[2021-10-19] MEDS: NICOTINE 21 MG/24 HR TDSY TD SCH (10:40)
--- NOTE | 2021-10-19 16:48 | Discharge Summary ---
Date of Service October 19, 2021 Admission HPI Per Admitting Provider A 51-year-old male with a past medical history significant for history of diarrhea, nausea, vomiting, severe epigastric abdominal pain, leukocytosis, tobacco use disorder, presents with nausea, vomiting, abdominal pain going on for 1 day, had several episodes of vomiting. He had a similar episode about 5-6 years ago. He stated that he had one episode of some blood in the vomitus. Denies any diarrhea. He says he will occasionally take NSAIDs, but not on a regular basis. Denies any headache. No neck pain, no back pain. No chest pain, no shortness of breath. Has chronic cough. He has a smoking history. Normal bladder movements. Normal bowel movements, hemodynamically stable. Admission Exam Per Admitting Provider GENERAL: The patient is of moderate build, not in acute distress. VITAL SIGNS: Temperature 36.5, pulse 91, respiratory rate 24, blood pressure 147/116, oxygen 99% on room air. HEENT: Pupils equal, round and reactive to light. Oral mucosa moist. NECK: No JVD or neck masses. CARDIOVASCULAR: S1 and S2 heard. Regular rate and rhythm. No murmur, no gallop. RESPIRATORY SYSTEM: Normal AP diameter. No accessory muscle use. No wheezing, no crackles. ABDOMEN: Soft, bowel sounds present, nontender, no distention. CENTRAL NERVOUS SYSTEM: Cranial nerves II-XII grossly nonfocal. EXTREMITIES: No edema, no erythema. Principal Diagnosis Grade C esophagitis Discharge Exam General: Lying comfortably in bed, not in distress, on room air HEENT: EOMI, PERRL, MMM Chest: Clear breath sounds bilaterally, no wheezes or crackles CVS: Regular rate and rhythm, normal heart sounds, no murmur Abdomen: Soft, no tenderness, not distended, normal bowel sounds Neuro: Awake, alert, oriented, conversing well, non focal Extremities: No edema Discharge Data Allergies Allergy/AdvReac Type Severity Reaction Status Date / Time No Known Allergies Allergy Unverified 10/16/21 20:38 Consultations 10/17/21 00:08 ED Decision to Admit Stat 10/17/21 08:00 Consult Gastroenterology Routine Procedures Performed Operation Date: 10/17/21 12:00 Actual Procedures p Esophagogastroduodenoscopy - Silvano Lee MD Ordered Studies 10/16/21 21:23 CT abd pelvis IV con only Urgent 10/18/21 09:09 US RUQ [US liver] Routine Laboratory Results WBC 10.61 K/ul (4.8-10.8) 10/19/21 06:33 RBC 3.77 M/uL (4.63-6.08) L 10/19/21 06:33 Hgb 12.1 g/dl (14.0-18.0) L 10/19/21 06:33 Hct 34.2 % (40.1-51.0) L 10/19/21 06:33 MCV 90.7 fL (80.0-100.0) 10/19/21 06:33 MCH 32.1 pg (25.0-34.0) 10/19/21 06:33 MCHC 35.4 g/dL (32.0-36.0) 10/19/21 06:33 RDW Std Deviation 47.3 fL (36.4-46.3) H 10/19/21 06:33 RDW Coeff of Rosaura 14.2 % (11.5-14.5) 10/19/21 06:33 Plt Count 162 K/uL (130-400) 10/19/21 06:33 MPV 11.2 fL (9.4-12.4) 10/19/21 06:33 Immature Gran % (Auto) 0.3 % 10/18/21 05:13 Neut % (Auto) 58.4 % 10/18/21 05:13 Lymph % (Auto) 33.2 % 10/18/21 05:13 [place] % (Auto) 7.0 % 10/18/21 05:13 Eos % (Auto) 0.3 % 10/18/21 05:13 Baso % (Auto) 0.8 % 10/18/21 05:13 Neut # (Auto) 7.01 K/uL (1.4-6.5) H 10/18/21 05:13 Lymph # (Auto) 3.98 K/uL (1.2-3.4) H 10/18/21 05:13 [place] # (Auto) 0.84 K/uL (0.24-0.82) H 10/18/21 05:13 Eos # (Auto) 0.04 K/uL (0-0.50) 10/18/21 05:13 Baso # (Auto) 0.10 K/uL (0-0.2) 10/18/21 05:13 Immature Gran # (Auto) 0.03 K/uL (0.00-0.02) H 10/18/21 05:13 Target Cells 1+ 10/16/21 19:56 Sodium 140 mmol/L (136-145) 10/19/21 06:33 Potassium 3.4 mmol/L (3.5-5.1) L 10/19/21 06:33 Chloride 107 mmol/L (98-107) 10/19/21 06:33 Carbon Dioxide 28 mmol/L (21-32) 10/19/21 06:33 Anion Gap 5 (3-11) 10/19/21 06:33 BUN 6 mg/dl (6-23) 10/19/21 06:33 Creatinine 1.01 mg/dl (0.6-1.4) 10/19/21 06:33 Est Cr Clr Drug Dosing 72.5 ml/min 10/19/21 06:33 Est GFR ( Amer) 99.4 ml/min 10/19/21 06:33 Est GFR (Non-Af Amer) 85.7 ml/min 10/19/21 06:33 BUN/Creatinine Ratio 5.9 (10-20) L 10/19/21 06:33 Glucose 97 mg/dl (70-99(Fasting)) 10/19/21 06:33 Calcium 8.3 mg/dl (8.5-10.1) L 10/19/21 06:33 Phosphorus 3.3 mg/dl (2.5-4.9) 10/19/21 06:33 Magnesium 1.8 mg/dl (1.7-2.4) 10/19/21 06:33 Total Bilirubin 0.7 mg/dl (0.2-1.0) 10/19/21 06:33 Direct Bilirubin 0.1 mg/dl (0-0.2) 10/19/21 06:33 AST 11 U/L (13-39) L 10/19/21 06:33 ALT 9 U/L (7-52) 10/19/21 06:33 Alkaline Phosphatase 63 U/L (34-104) 10/19/21 06:33 Total Protein 5.5 gm/dl (6.0-8.3) L 10/19/21 06:33 Albumin 3.5 gm/dl (3.4-5.0) 10/19/21 06:33 Globulin 3.1 gm/dl (2.5-4.0) 10/16/21 19:56 Albumin/Globulin Ratio 1.6 (0.9-2) 10/16/21 19:56 Lipase 8 U/L (11-82) L 10/16/21 19:56 Procalcitonin < 0.05 ng/ml (0-0.5) 10/19/21 06:33 Urine Color Dark Yellow 10/17/21 16:00 Urine Appearance Clear (Clear) 10/17/21 16:00 Urine pH 8.0 (4.5-7.5) H 10/17/21 16:00 Ur Specific [place] > 1.045 (1.000-1.030) H 10/17/21 16:00 Urine Protein Negative (Negative) 10/17/21 16:00 Urine Glucose (UA) Negative (Negative) 10/17/21 16:00 Urine Ketones 1+ (Negative) H 10/17/21 16:00 Urine Blood Negative (Negative) 10/17/21 16:00 Urine Nitrite Negative (Negative) 10/17/21 16:00 Urine Bilirubin Negative (Negative) 10/17/21 16:00 Urine Urobilinogen Negative (Negative) 10/17/21 16:00 Ur Leukocyte Esterase Negative (Negative) 10/17/21 16:00 Gastric Fluid pH 2 10/16/21 22:50 Gastric Occult Blood Positive (Negative) A 10/16/21 22:50 SARS-CoV-2 (PCR) NEGATIVE (Negative) 10/17/21 00:05 Influenza Type A (PCR) Negative (Neg) 10/17/21 00:05 Influenza Type B (PCR) Negative (Neg) 10/17/21 00:05 RSV (RT-PCR) Negative (Neg) 10/17/21 00:05 Impressions Abdomen/Pelvis CT 10/16/21 21:23 CT SCAN OF THE ABDOMEN AND PELVIS WITH IV CONTRAST CLINICAL HISTORY: Upper abdominal pain. Nausea and vomiting. COMPARISON STUDY: Abdominal CT dated 10/14/2013. TECHNIQUE: Following the IV administration of 91 cc of Optiray 300, CT scan of the abdomen and pelvis is performed from the lung bases to the proximal femora. Images are reviewed in the axial, sagittal, and coronal planes. IV contrast was administered without complication. A dose lowering technique was utilized adhering to the principles of ALARA. CT DOSE: 266.54 mGy.cm FINDINGS: Lung bases: The heart is normal in size and without pericardial effusion. The lung bases are clear. Liver: The contrast-enhanced liver is normal in size, contour, and attenuation. Focal fatty infiltration is seen adjacent to the falciform ligament. There is no intrahepatic biliary ductal dilatation. The hepatic veins and portal veins are patent. Scattered subcentimeter hepatic hypodensities likely represent cysts but are too small for definitive characterization. Gallbladder: Adenomyomatosis is suggested in the gallbladder fundus. The gallbladder is otherwise normal as imaged. Spleen: Normal in size and attenuation. Pancreas: Unremarkable. Adrenal glands: Unremarkable. Kidneys: The contrast enhanced kidneys are normal in size and without hydronephrosis. The kidneys enhance symmetrically. Abdominal vasculature: The abdominal aorta is normal in course and caliber noting mild to moderate atherosclerotic calcification. Bowel: There is mild sigmoid diverticulosis without CT evidence of acute diverticulitis. No bowel obstruction is seen. There is underdistention of the colon. No surrounding inflammation is seen to suggest colitis. The appendix is well-visualized and normal. Peritoneum: There is no intraperitoneal free air or abdominal ascites. Lymphadenopathy: None. Pelvic viscera: The prostate gland is enlarged and heterogeneous noting median lobe hypertrophy. The bladder is normal as visualized. Skeletal structures: No lytic or blastic lesions are seen. IMPRESSION: 1. No acute infectious or inflammatory findings are identified in the abdomen or pelvis. 2. Adenomyomatosis is suggested in the gallbladder fundus. Nonemergent ultrasound is recommended for further assessment. ACT 112: Negative or not required by law. Electronically signed by: Martinez Ortiz M.D. 10/17/2021 7:37 AM Chest X-Ray 10/16/21 22:56 XR chest 1V portable HISTORY: vomiting COMPARISON: Chest and abdominal series 10/14/2013. FINDINGS: The lungs are clear. Cardiac silhouette is normal in size. No pleural effusions. No pneumothorax. IMPRESSION: No acute process. ACT 112: Negative or not required by law. Electronically signed by: Gonzalez Anglin M.D. 10/17/2021 8:28 AM Liver Ultrasound 10/18/21 09:09 ABDOMINAL ULTRASOUND, RIGHT UPPER QUADRANT HISTORY: Abnormal gallbladder CT. Follow-up. eval for GB polyp stone. abn CT. COMPARISON: Abdomen and pelvis CT 10/16/2021. FINDINGS: Pancreas: The pancreas demonstrates a normal echotexture. Liver: Unremarkable. Gallbladder: The gallbladder fundus is not well visualized due to overlying bowel gas. There may be focal thickening at the gallbladder fundus on image 28. This likely corresponds to the CT abnormality and favors adenomyomatosis. There is mild edema and thickening at the gallbladder wall along the hepatic surface measuring up to 7 mm in thickness. No gallstones. CBD: 5 mm. Right kidney: No hydronephrosis. Trace perinephric fluid is noted. IMPRESSION: 1. The gallbladder fundus is not well visualized due to overlying bowel gas. There may be focal thickening of the gallbladder fundus which likely corresponds to the CT abnormality and favors adenomyomatosis. 2. No gallstones. 3. Mild gallbladder wall thickening/edema along the hepatic surface measuring up to 7 mm. This nonspecific but could be due to overhydration or underlying hepatic pathology. Recommend correlate with the LFTs. An acute cholecystitis is considered less likely. 4. Normal caliber common bile. ACT 112: Negative or not required by law. Electronically signed by: Gonzalez Anglin M.D. 10/18/2021 1:52 PM Hospital Course (1) Esophagitis determined by endoscopy: (2) Leucocytosis: Plan 51-year-old male who presented to ED with nausea, vomiting, abdominal pain going on for 1 day, had several episodes of vomiting. Symptoms improved. CT A/P with no acute abnormality, EGD with esophagitis. Esophagitis- S/p EGD on 10/17 which showed grade C esophagitis, otherwise normal. Recommendations noted - PPI bid for 3 months - Repeat EGD in 2 month to assess healing - Reviewed things to look after- stop smoking, avoid NSAIDs, not to lie down until after 3-4 hrs of meal etc. He states he will quit smoking N/V- resolved. He feels much better and tolerating regular diet without issues. No epigastric pain. Discharged on some prn zofran in case he needs it. Tobacco abuse- smokes at least 1 ppd. Recommended quitting. He is determined to quit Leucocytosis- unclear etiology but resolved with empiric zosyn->will change to augmentin for 3 more days. States he has been having sinus issues for few days now which could be the cause. GB adenomyomatosis- seen in CT. GI recommended GB US but not well visualized in US due to overlying bowel gas, however no gallstones. Recommend OP follow up Stable for discharge home. Tolerating all oral intake without issues. Ambulating independently. Discharge instructions reviewed. Total Time Total Time Spent Total Time Spent (In Minutes): 38 Discharge Plan Discharge Items Patient Disposition: Home - Self-Care Reason For Visit: VOMITING, NAUSEA Discharge Diagnosis: Esophagitis. N/V Activity: Resume your previous activity Non-emergency contact: Primary Care Provider and Sterile Preparation Technician Call non-emergency contact if: you have any medication questions and your symptoms worsen Follow-up/Referrals: Juany Naylor MD [Hospitalist] - (Date & Time 10/22/2021 11:20 AM Provider Juany Naylor MD Department Family Medicine [facility] ) Diet: Regular Addtl Attending Provider Instructions: You were found to have esophagitis. continue protonix twice daily half hour before meals for 3 months continue augmentin for 3 more days Repeat endoscopy in 2 months with GI doctors to make sure the inflammation is healing Stop smoking. Avoid over the counter pain meds. Tylenol is okay. Do not lie down for 3 hours after meals. Follow up with family doctor in 1-2 weeks Pending Studies at Discharge: No Stand-Alone Forms: [employer], Smoking Cessation Medications and DC Order Prescriptions: New pantoprazole [Protonix] 40 mg tablet,delayed release (DR/EC) 40 mg PO BID Qty: 60 0RF ondansetron 4 mg tablet,disintegrating 4 mg PO Q8H Qty: 10 0RF amoxicillin-pot clavulanate 875-125 mg tablet 1 tab PO BID Qty: 7 0RF Discharge Orders: Discharge Order (Routine); Ordered 10/19/21 Ordered By: Jose Good/Other Patient Handouts: Esophagitis Admission Data Admit Date/Time: 10/17/21 01:55 Attending Provider: Jose Rios Admit Provider: Aric Rendon Primary Care Provider: PCP,NO Other Providers: Aric Rendon ; Jose Eduardo Duenas Other Interventions: Discharge Summary Assessment (RN) Last Done: 10/19/21 10:31
== END 2021-10-19 12:00 | disposition home or self-care (01) ==
LOC: ED 18:29 → INTOOBSV 10-17 01:55 → EDINP 10-17 01:55 → SUATTDRO 10-17 01:55 → EDINP 10-18 04:49 → 2N 10-18 16:47

== ENCOUNTER 2024-12-15 18:00 | Observation (INO) ==
[2024-12-15] MEDS: FAMOTIDINE 20MG IV PUSH 20 MG/5 ML SYR IV STA (18:29)
[2024-12-15] MEDS: ONDANSETRON INJ 2 MG/ML 2 ML VIAL IV STA (18:29)
[2024-12-15] MEDS: SODIUM CHLORIDE 0.9% 1,000 ML IV ONE (18:29)
[2024-12-15] MEDS: ACETAMINOPHEN 1,000 MG/100 ML VIAL IV STA (18:30)
--- NOTE | 2024-12-15 18:33 | Emergency Department Note ---
Impression & Plan Nausea & vomiting, Abdominal pain, Chest pain, Colitis ED Provider Note HISTORY OF PRESENT ILLNESS: Patient is a 54-year-old male presenting with chest pain, abdominal pain and vomiting. Patient reports he started having pain in his epigastric abdomen starting at around 1500 today. He proceeded to vomit and has been vomiting for the last few hours. He also reports having substernal chest pain. When asked to describe the symptoms he states "it just really hurts." He denies any anticoagulation use. Denies any history of cardiac stents. Denies any DVT or PE history. He reports feeling nauseous. He was given about 250 cc of fluid with EMS prehospital. He denies any measured fevers at home, but reports he has been having chills and sweats. He denies any dysuria or hematuria. Denies any history of abdominal surgeries. ROS: as above PHYSICAL EXAM: Constitutional: Patient appears in no acute distress. HENT: Head: Normocephalic and atraumatic. Eyes: EOMI, PERRL Mouth/Throat: Mucous membranes moist. Neck: Trachea midline. Neck supple. Cardiovascular: RRR, No murmurs, rubs or gallops. Intact distal pulses. Pulmonary/Chest: No respiratory distress. Breath sounds clear and equal bilaterally. No wheezes or rales. Abdominal: Abdomen soft, no rebound or guarding. Diffuse tenderness to palpation. Musculoskeletal: No edema, tenderness or deformity noted. Skin: Warm and dry. No rash, erythema, pallor or cyanosis Psychiatric: Appropriate mood and affect for situation. Neurological: Alert and keenly responsive. CN II-XII grossly intact, moving all extremities equally and fully. MDM: - Vitals signs showed bradycardia - History obtained via patient. History as above. - Chronic conditions affecting care: GERD; gastritis - Differential diagnoses include, but are not limited to: Acute coronary syndrome; pulmonary embolism; dissection; tension pneumothorax; esophageal rupture; pneumonia; electrolyte abnormality; dehydration; viral syndrome - Order placed for continuous cardiac monitoring. At this time, monitor showed rate of 53 bpm with normal sinus rhythm, per my interpretation. - External medical records reviewed. - EKG image interpreted by myself showed normal sinus rhythm. Rate bradycardic at 55 bpm. QT 494. No acute ischemic changes. - Laboratory workup interpreted by myself showed leukocytosis (WBC 16.93); normal PT/INR; stable electrolytes; normal troponin; normal AST/ALT; normal lipase - Viral respiratory panel negative. - CXR image reviewed interpreted by myself was negative for pneumonia, per my interpretation. - CT abdomen/pelvis with IV contrast showed pancolonic wall thickening due to incomplete distention versus colitis. - Patient given 1L NS, 1g IV tylenol, 4 mg IV zofran and 20 mg IV pepcid in ER. On reassessment, patient reports feeling "worse than when I arrived." He reports feeling nauseous after trying oral intake in the emergency department. He also is complaining of having diarrhea and reports has had multiple episodes in the ER. Stool studies were ordered. Patient reports he does not feel comfortable going home given his persistent symptoms. - Discussion was had with pillowcase sewer about patient's case and need for admission - Hospitalist, Dr. Forde, consulted for admission at 22:00 - [facility] ASSESSMENT AND PLAN: Diagnosis: colitis; abdominal pain; nausea and vomiting; chest pain Plan: admit Past Med/Surg History Problem List (Updated 12/15/24 @ 22:01 by Brenna Tovar MD) Colitis (Acute) Chest pain (Acute) Abdominal pain (Acute) Nausea & vomiting (Acute) Esophagitis determined by endoscopy Encounter for pre-operative examination Leukocytosis (Acute) Hypokalemia (Acute) Abdominal pain, acute (Acute) Gastritis (Acute) Abdominal pain, acute (Acute) Ankle pain (Acute) Displaced fracture of neck of left fifth metacarpal bone (Acute) Gastritis (Acute) Vomiting (Acute) Medical History GERD (gastroesophageal reflux disease) Surgical History No significant past surgical history Social History Smoking Status: Current every day smoker Tobacco Type: Cigarettes Second Hand Exposure: No; Hx Alcohol Use: No Hx Substance Use: No Preferred Language: [place] Islander Communication Ability: Effective 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 Beliefs That Will Affect Care: None marital status: Current Living Situation: Spouse and Family Current Living Situation Comment: and sons Feels Safe at Home: Yes Assistive Devices: None Allergies Allergies Allergy/AdvReac Type Severity Reaction Status Date / Time No Known Allergies Allergy Unverified 10/16/21 20:38 Home Meds Home Medications Medication Instructions Recorded Confirmed Suboxone 1 mg PO DAILY 10/31/24 10/31/24 Results & Data (ED) Vital Signs Vital Signs - 24 hr 12/15/24 18:08 12/15/24 18:14 12/15/24 18:52 Temperature 36.5 C Temperature Source Oral Pulse Rate 52 L 58 L Pulse Rate [Apical] Pulse Rhythm [Apical] Pulse Strength [Apical] Respiratory Rate 16 Respiratory Effort / Characteristics Non-Labored Spontaneous Respiratory Depth Normal Respiratory Pattern Blood Pressure 129/67 Blood Pressure [Right Arm] Blood Pressure Mean 87 Blood Pressure Mean [Right Arm] Blood Pressure Position [Right Arm] Pulse Oximetry 99 99 Oxygen Delivery Method Room Air Room Air Sepsis Recent Fever Within 48 Hours No Sepsis New/Unexplained Change in Mental Status N/A Sepsis Action Taken by Nursing No Action Required 12/15/24 19:11 12/15/24 20:54 Temperature Temperature Source Pulse Rate Pulse Rate [Apical] 65 43 L Pulse Rhythm [Apical] Regular Regular Pulse Strength [Apical] Normal Respiratory Rate 16 13 Respiratory Effort / Characteristics Non-Labored Non-Labored Respiratory Depth Normal Normal Respiratory Pattern Regular Regular Blood Pressure Blood Pressure [Right Arm] 129/67 122/72 Blood Pressure Mean Blood Pressure Mean [Right Arm] 87 88 Blood Pressure Position [Right Arm] Lying Lying Pulse Oximetry 91 94 Oxygen Delivery Method Room Air Room Air Sepsis Recent Fever Within 48 Hours Sepsis New/Unexplained Change in Mental Status Sepsis Action Taken by Nursing Laboratory Data 12/15/24 18:39 12/15/24 18:39 Lab Results 12/15/24 12/15/24 Range/Units 18:30 18:39 WBC 16.93 H (4.8-10.8) K/ul RBC 4.36 L (4.70-6.10) M/uL Hgb 13.1 L (14.0-18.0) g/dl Hct 38.4 L (42.0-52.0) % MCV 88.1 (80.0-100.0) fL MCH 30.0 (25.0-34.0) pg MCHC 34.1 (32.0-36.0) g/dL RDW Std Deviation 46.0 (36.4-46.3) fL RDW Coeff of Rosaura 14.4 (11.5-14.5) % Plt Count 248 (130-400) K/uL MPV 10.5 (9.4-12.4) fL Immature Gran % (Auto) 0.4 % Neut % (Auto) 88.4 % Lymph % (Auto) 8.4 % Angelina % (Auto) 2.4 % Eos % (Auto) 0.0 % Baso % (Auto) 0.4 % Neut # (Auto) 14.96 H (1.40-6.50) K/uL Lymph # (Auto) 1.42 (1.20-3.40) K/uL Angelina # (Auto) 0.41 (0.11-0.59) K/uL Eos # (Auto) 0.00 (0.00-0.50) K/uL Baso # (Auto) 0.07 (0.00-0.20) K/uL Immature Gran # (Auto) 0.07 (0.01-0.20) K/uL PT 11.4 (9.0-12.0) Seconds INR 1.1 (0.9-1.1) Sodium 136 (136-145) mmol/L Potassium 3.9 (3.5-5.1) mmol/L Chloride 106 (98-107) mmol/L Carbon Dioxide 22 (21-32) mmol/L Anion Gap 8 (3-11) BUN 11 (6-23) mg/dl Creatinine 0.89 (0.6-1.4) mg/dl Est Cr Clr Drug Dosing 74.5 ml/min eGFR 101.84 BUN/Creatinine Ratio 12.4 (10-20) Glucose 135 H (70-99(Fasting)) mg/dl Calcium 9.0 (8.6-10.3) mg/dl Total Bilirubin 0.6 (0.2-1.0) mg/dl AST 13 (13-39) U/L ALT 9 (7-52) U/L Alkaline Phosphatase 106 H (34-104) U/L Troponin I High Sens < 2.3 (0-20) pg/ml Total Protein 6.9 (6.0-8.3) gm/dl Albumin 3.9 (3.4-5.0) gm/dl Globulin 3.0 (2.5-4.0) gm/dl Albumin/Globulin Ratio 1.3 (0.9-2) Lipase 15 (11-82) U/L Adenovirus (PCR) Not Detected (NotDetected) B. pertussis DNA (PCR) Not Detected (NotDetected) B.parapertussis DNA PCR Not Detected (NotDetected) C. pneumoniae DNA (PCR) Not Detected (NotDetected) Coronavirus OC43 (PCR) Not Detected (NotDetected) Coronavirus HKU1 (PCR) Not Detected (NotDetected) Coronavirus 229E (PCR) Not Detected (NotDetected) SARS-CoV-2 (PCR) Not Detected (NotDetected) Coronavirus NL63 (PCR) Not Detected (NotDetected) Human Metapneumovir PCR Not Detected (NotDetected) Influenza Type A (PCR) Not Detected (NotDetected) Influenza Type B (PCR) Not Detected (NotDetected) M. pneumoniae (PCR) Not Detected (NotDetected) Parainfluenza 1 (PCR) Not Detected (NotDetected) Parainfluenza 2 (PCR) Not Detected (NotDetected) Parainfluenza 3 (PCR) Not Detected (NotDetected) Parainfluenza 4 (PCR) Not Detected (NotDetected) RSV (PCR) Not Detected (NotDetected) Entero/Rhino (PCR) Not Detected (NotDetected) Administered Medications Discontinued Medications Sodium Chloride (Nss) 1,000 mls @ 999 mls/hr IV .Q1H1M ONE Stop: 12/15/24 19:13 Last Infusion: 12/15/24 20:05 Dose: Infused Documented By: clara Admin: 12/15/24 18:29 Dose: 999 mls/hr Documented By: VINAY Acetaminophen (Ofirmev) 1,000 mg in 100 mls @ 400 mls/hr IV NOW STA Stop: 12/15/24 18:27 Last Infusion: 12/15/24 19:19 Dose: Infused Documented By: clara Admin: 12/15/24 18:30 Dose: 400 mls/hr Documented By: VINAY Famotidine (Pepcid 20mg Iv Push) 20 mg in 5 mls @ 2.5 mls/min IV NOW STA Stop: 12/15/24 18:14 Last Admin: 12/15/24 18:29 Dose: 2.5 mls/min Documented By: VINAY Ioversol (Optiray 320 100ml) 90 ml IV ONCE ONE Stop: 12/15/24 19:54 Last Admin: 12/15/24 19:54 Dose: 90 ml Documented By: SHERRI Ondansetron HCl (Ondansetron Inj 2 Mg/Ml 2 Ml Vial) 4 mg IV NOW STA Stop: 12/15/24 18:14 Last Admin: 12/15/24 18:29 Dose: 4 mg Documented By: VINAY Imaging Data Radiologist's Impression: Chest X-Ray 12/15/24 18:13 Single frontal view of the chest Comparison made to prior exam dated 10/30/2024 Impression No acute pulmonary pathology. Electronically signed by Archie Restrepo 12-15-2024 8:06 PM Abdomen/Pelvis CT 12/15/24 19:31 Exam(s): CT ABDOMEN + PELVIS With Contrast IV Amt: 90 ml optiray 320 EXAM: CT Abdomen and Pelvis With Intravenous Contrast CLINICAL HISTORY: Reason for exam: abd pain; N/V/D. TECHNIQUE: Axial computed tomography images of the abdomen and pelvis with intravenous contrast. CTDI is 6.76 mGy and DLP is 299.52 mGy-cm. Automated exposure control was utilized for the study. A dose lowering technique was utilized adhering to the principles of ALARA. CONTRAST: Patient received 90 ml optiray 320 of IV contrast COMPARISON: 10/30/2024 CTA FINDINGS: Lung bases: Unremarkable. ABDOMEN: Liver: Subcentimeter hepatic cysts. Gallbladder and bile ducts: Unremarkable. No calcified stones. No ductal dilation. Pancreas: Unremarkable. No mass. No ductal dilation. Spleen: Unremarkable. No splenomegaly. Adrenals: Unremarkable. No mass. Kidneys and ureters: Unremarkable. No solid mass. No hydronephrosis. Stomach and bowel: Distal colonic diverticula without diverticulitis. The appearance of pancolonic wall thickening is favored due to incomplete distention, but colitis is not excluded. No bowel obstruction. PELVIS: Appendix: Normal appendix. Bladder: Unremarkable. No mass. Reproductive: Unremarkable as visualized. ABDOMEN and PELVIS: Intraperitoneal space: Unremarkable. No free air or significant free fluid. Bones/joints: No acute fracture. No dislocation. Soft tissues: Unremarkable. Vasculature: Atherosclerosis. No abdominal aortic aneurysm. Lymph nodes: Unremarkable. No enlarged lymph nodes. IMPRESSION: The appearance of pancolonic wall thickening is favored due to incomplete distention, but colitis is not excluded. Correlate clinically. Electronically signed by: Tracy Gallegos M.D. 12/15/24 21:03 PM Discharge Plan Visit Data Chief Complaint: Vomiting Stated Complaint: vomiting ED Provider: Brenna Tovar Discharge Problem: Nausea & vomiting, Abdominal pain, Chest pain, Colitis Condition: Fair Discharge Instructions Krames/Other Patient Handouts: ED Vomiting (Adult) Activity Restrictions/Additional Instructions: Your laboratory workup in the emergency department showed that your white blood cell count was slightly elevated, which can be seen in the setting of infection or inflammatory etiologies. This may be secondary to your multiple episodes of vomiting. Your chest x-ray did not show any evidence of pneumonia. Your viral swab was negative. Your CT scan of your abdomen/pelvis showed that you had some inflammation of your colon, which is likely the source for your vomiting and potential impending diarrhea. Recommend staying well-hydrated the next few days and slowly advance your diet as tolerated. Please follow-up closely with your primary care provider. Return to the emergency department immediately if you develop persistent vomiting, inability to tolerate oral intake, chest pain or shortness of breath, lightheadedness or dizziness, worsening abdominal pain, or any new or worsening symptoms. Forms Stand Alone Forms: [employer] [facility] Prescriptions Prescriptions: No Action Suboxone 1 mg PO DAILY Referrals Referrals: PCP,NO [Primary Care Provider] -
[2024-12-15 19:11] LABS: Hematocrit (blood only) 38.4 % (42.0-52.0); Hemoglobin 13.1 g/dl (14.0-18.0); Immature Granulocytes # (auto) 0.07 K/uL (0.01-0.20); Immature Granulocytes % (auto) 0.4 %; Mean Corpuscular Hemoglobin 30.0 pg (25.0-34.0); Mean Corpuscular Volume 88.1 fL (80.0-100.0); Platelet Count 248 K/uL (130-400); RDW Standard Deviation 46.0 fL (36.4-46.3); Red Blood Count 4.36 M/uL (4.70-6.10); White Blood Count 16.93 K/ul (4.8-10.8)
[2024-12-15 19:27] LABS: Alanine Aminotransferase 9 U/L (7-52); Albumin Globulin Ratio 1.3 (0.9-2); Albumin Level 3.9 gm/dl (3.4-5.0); Alkaline Phosphatase 106 U/L (34-104); Anion Gap 8 (3-11); Bilirubin,Total 0.6 mg/dl (0.2-1.0); Blood Urea Nitrogen 11 mg/dl (6-23); Calcium 9.0 mg/dl (8.6-10.3); Carbon Dioxide 22 mmol/L (21-32); Chloride 106 mmol/L (98-107); Creatinine Clr Calc Pharmacy 74.5 ml/min; Globulin 3.0 gm/dl (2.5-4.0); Glucose 135 mg/dl (70-99(Fasting)); Lipase 15 U/L (11-82); Potassium 3.9 mmol/L (3.5-5.1); Sodium 136 mmol/L (136-145); Total Protein 6.9 gm/dl (6.0-8.3)
[2024-12-15 19:29] LABS: Chlamydia pneumoniae PCR Not Detected (NotDetected); Coronavirus 229E PCR Not Detected (NotDetected); Coronavirus CoV-2 (COVID19)PCR Not Detected (NotDetected); Coronavirus HKU1 PCR Not Detected (NotDetected); Coronavirus NL63 PCR Not Detected (NotDetected); Coronavirus OC43PCR Not Detected (NotDetected); Human Metapneumovirus PCR Not Detected (NotDetected); Parainfluenza Virus 1 PCR Not Detected (NotDetected); Parainfluenza Virus 2 PCR Not Detected (NotDetected); Parainfluenza Virus 3 PCR Not Detected (NotDetected); Parainfluenza Virus 4 PCR Not Detected (NotDetected); Respiratory Syncytial VirusPCR Not Detected (NotDetected); Rhinovirus/Enterovirus PCR Not Detected (NotDetected)
[2024-12-15 19:35] LABS: INR 1.1 (0.9-1.1); Prothrombin Time 11.4 Seconds (9.0-12.0)
[2024-12-15] MEDS: OPTIRAY 320 100ml IV ONE (19:54)
--- NOTE | 2024-12-15 20:07 | XRay Report ---
Single frontal view of the chest Comparison made to prior exam dated 10/30/2024 Impression No acute pulmonary pathology. Electronically signed by Archie Restrepo 12-15-2024 8:06 PM
--- NOTE | 2024-12-15 21:05 | CT Scan Report ---
Exam(s): CT ABDOMEN + PELVIS With Contrast IV Amt: 90 ml optiray 320 EXAM: CT Abdomen and Pelvis With Intravenous Contrast CLINICAL HISTORY: Reason for exam: abd pain; N/V/D. TECHNIQUE: Axial computed tomography images of the abdomen and pelvis with intravenous contrast. CTDI is 6.76 mGy and DLP is 299.52 mGy-cm. Automated exposure control was utilized for the study. A dose lowering technique was utilized adhering to the principles of ALARA. CONTRAST: Patient received 90 ml optiray 320 of IV contrast COMPARISON: 10/30/2024 CTA FINDINGS: Lung bases: Unremarkable. ABDOMEN: Liver: Subcentimeter hepatic cysts. Gallbladder and bile ducts: Unremarkable. No calcified stones. No ductal dilation. Pancreas: Unremarkable. No mass. No ductal dilation. Spleen: Unremarkable. No splenomegaly. Adrenals: Unremarkable. No mass. Kidneys and ureters: Unremarkable. No solid mass. No hydronephrosis. Stomach and bowel: Distal colonic diverticula without diverticulitis. The appearance of pancolonic wall thickening is favored due to incomplete distention, but colitis is not excluded. No bowel obstruction. PELVIS: Appendix: Normal appendix. Bladder: Unremarkable. No mass. Reproductive: Unremarkable as visualized. ABDOMEN and PELVIS: Intraperitoneal space: Unremarkable. No free air or significant free fluid. Bones/joints: No acute fracture. No dislocation. Soft tissues: Unremarkable. Vasculature: Atherosclerosis. No abdominal aortic aneurysm. Lymph nodes: Unremarkable. No enlarged lymph nodes. IMPRESSION: The appearance of pancolonic wall thickening is favored due to incomplete distention, but colitis is not excluded. Correlate clinically. Electronically signed by: Tracy Gallegos M.D. 12/15/24 21:03 PM
[2024-12-15] MEDS ORDERED: ACETAMINOPHEN 325 MG TAB PO PRN (22:15)
[2024-12-15] MEDS ORDERED: PROMETHAZINE 6.25 MG/50.25 ML BAG IV PRN (22:15)
[2024-12-15] MEDS ORDERED: KETOROLAC TROMETHAMINE 15 MG/ML VIAL IV PRN (22:15)
[2024-12-15 22:32] LABS: Magnesium 1.7 mg/dl (1.7-2.4)
[2024-12-15 22:47] LABS: Thyroid Stimulating Hormone 0.627 uIu/ml (0.300-4.500)
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
[2024-12-15 23:11] LABS: Appearance Urine Clear (Clear); Glucose Urine UA Negative (Negative)
[2024-12-15 23:33] LABS: Amphetamines+Metham, Urine Neg (Neg); MDMA (Ecstacy), Urine Neg (Neg); Marijuana, Urine Pos (Neg)
[2024-12-15 23:37] LABS: Epithelial Cell Urine 0-2 /hpf (0-2)
[2024-12-16] MEDS: PANTOprazole 40 MG/10 ML SYR IV STA (01:02)
[2024-12-16] MEDS: AMPICILLIN/SULBACTAM SOD 3,000 MG/100 ML BAG IV STA (01:06)
[2024-12-16] MEDS: ALBUT/IPRATROP 3MG/0.5MG NEB 3 ML VIAL NEB STA (01:39)
[2024-12-16] MEDS: SODIUM CHLORIDE 0.9% 1,000 ML IV STA (02:35)
[2024-12-16 06:01] LABS: Hematocrit (blood only) 36.5 % (42.0-52.0); Hemoglobin 12.6 g/dl (14.0-18.0); Immature Granulocytes # (auto) 0.06 K/uL (0.01-0.20); Immature Granulocytes % (auto) 0.4 %; Mean Corpuscular Hemoglobin 30.6 pg (25.0-34.0); Mean Corpuscular Volume 88.6 fL (80.0-100.0); Platelet Count 250 K/uL (130-400); RDW Standard Deviation 47.5 fL (36.4-46.3); Red Blood Count 4.12 M/uL (4.70-6.10); White Blood Count 13.84 K/ul (4.8-10.8)
[2024-12-16 06:17] LABS: Anion Gap 10.0 (3-11); Blood Urea Nitrogen 10.0 mg/dl (6-23); Calcium 8.7 mg/dl (8.6-10.3); Carbon Dioxide 23.0 mmol/L (21-32); Chloride 104.0 mmol/L (98-107); Creatinine Clr Calc Pharmacy 73.0 ml/min; Glucose 113.0 mg/dl (70-99(Fasting)); Potassium 3.5 mmol/L (3.5-5.1); Sodium 137.0 mmol/L (136-145)
[2024-12-16 07:16] LABS: Hemoglobin A1C 5.9 % (4.5-5.6)
[2024-12-16] MEDS ORDERED: AMOXICILLIN/CLAVULANATE 875 MG TAB PO SCH (08:00)
[2024-12-16] MEDS: AMPICILLIN/SULBACTAM SOD 3,000 MG/100 ML BAG IV SCH (08:35)
[2024-12-16] MEDS: ADVANCED PROBIOTIC 625 MG CAPSULE PO SCH (08:36)
[2024-12-16] MEDS: ENOXAPARIN INJ 30 MG/0.3 ML SYR SQ SCH (08:37)
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
[2024-12-16] MEDS: NICOTINE POLACRILEX 2 MG GUM MT PRN (13:46)
[2024-12-16 19:28] VITALS: RESP 16
--- NOTE | 2024-12-16 22:10 | Electrocardiogram Report ---
Test Reason : Blood Pressure : */* mmHG Vent. Rate : 55 BPM Atrial Rate : 55 BPM P-R Int : 144 ms QRS Dur : 100 ms QT Int : 494 ms P-R-T Axes : 76 69 62 degrees QTcB Int : 472 ms Sinus bradycardia with sinus arrhythmia Otherwise normal ECG When compared with ECG of 30-Oct-2024 21:19, Questionable change in QRS axis Nonspecific T wave abnormality no longer evident in Inferior leads Confirmed by Blaze Lawrence ([id number]) on 12/16/2024 10:09:49 PM Referred By: REFERRED SELF Confirmed By: Blaze Lawrence
[2024-12-17 06:16] LABS: Hematocrit (blood only) 34.5 % (42.0-52.0); Hemoglobin 12.3 g/dl (14.0-18.0); Mean Corpuscular Hemoglobin 31.5 pg (25.0-34.0); Mean Corpuscular Volume 88.5 fL (80.0-100.0); Platelet Count 230 K/uL (130-400); RDW Standard Deviation 45.6 fL (36.4-46.3); Red Blood Count 3.90 M/uL (4.70-6.10); White Blood Count 9.73 K/ul (4.8-10.8)
[2024-12-17 06:38] LABS: Anion Gap 6.0 (3-11); Blood Urea Nitrogen 7.0 mg/dl (6-23); Calcium 8.3 mg/dl (8.6-10.3); Carbon Dioxide 27.0 mmol/L (21-32); Chloride 106.0 mmol/L (98-107); Creatinine Clr Calc Pharmacy 76.5 ml/min; Glucose 113.0 mg/dl (70-99(Fasting)); Magnesium 1.8 mg/dl (1.7-2.4); Potassium 3.3 mmol/L (3.5-5.1); Sodium 139.0 mmol/L (136-145)
[2024-12-17] MEDS: POTASSIUM CHLORIDE CRTAB 20 MEQ TABCR PO STA (08:52)
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
[2024-12-17 11:13] VITALS: BP 100/67; PULSE 75; TEMP 97.9; O2SAT 95
[2024-12-19 11:17] LABS: Marijuana Quant, GCMS Urine >5000 ng/mL (<5)
== END 2024-12-17 12:56 | disposition home or self-care (01) ==
LOC: ED 18:00 → 2N 18:00